=== PATIENT | male | born 1955 | race Caucasian/White ===

== ENCOUNTER → 2016-05-15 | Outpatient (CLI) | payer BC ==
[~2016-05-15] MED LIST: CALC500C3 PO; FLM4 PO; HYDR-5688 PO; LEVO200T6 PO
== END | disposition home or self-care (01) ==
LOC: C.CPL 14:42
PROVIDERS: ATTEND Surgery
DX: Z01.810 Encounter for preprocedural cardiovascular examination (principal); K43.9 Ventral hernia without obstruction or gangrene

== ENCOUNTER → 2016-05-15 | Outpatient (CLI) | payer BC ==
[2016-05-15 15:31] LABS: BASO % 0.6 %; BASO ABS # 0.04 K/uL (0-0.2); COMPLETE YES; EOS % 5.8 %; HEMATOCRIT 47.2 % (42-52); IG% 0.2 %; LYMPH % 32.6 %; LYMPH ABS # 2.12 K/uL (1.2-3.4); MEAN CELL VOLUME 90.6 fL (80-100); MEAN CORPUSCULAR HEMOGLOBIN 32.2 pg (25-34); MEAN CORPUSCULAR HGB CONC 35.6 g/dl (32-36); MEAN PLATELET VOLUME 11.5 fL (7.4-10.4); MONO % 10.2 %; NEUT % 50.6 %; PLATELET COUNT 235 K/uL (130-400); RED BLOOD COUNT 5.21 M/uL (4.7-6.1)
[2016-05-15 15:39] LABS: ALT/SGPT 28 U/L (12-78); BLOOD UREA NITROGEN 13 mg/dl (7-18); BUN/CREATININE RATIO 11.8 (10-20); CALCIUM 9.1 mg/dl (8.5-10.1); CARBON DIOXIDE 28 mmol/L (21-32); CHLORIDE 105 mmol/L (98-107); CHOLESTEROL 215 mg/dl (0-200); GLUCOSE 91 mg/dl (70-99); POTASSIUM 4.1 mmol/L (3.5-5.1); SODIUM 140 mmol/L (136-145)
[2016-05-15 15:45] LABS: PARTIAL THROMBOPLASTIN RATIO 1.1; PROTHROMBIN TIME (PATIENT) 10.3 SECONDS (9.0-12.0)
[2016-05-15 15:49] LABS: ALKALINE PHOSPHATASE 62 U/L (45-117); AST/SGOT 21 U/L (15-37); CHOLESTEROL/HDL RATIO 3.3; HDL CHOLESTEROL 66 mg/dl; LDL CHOLESTEROL CALCULATED 122 mg/dl; PROSTATE SPECIFIC ANTIGEN 0.805 ng/ml (0.000-4.000); TRIGLYCERIDES 133 mg/dl (0-150); VERY LOW DENSITY LIPOPROT CALC 27 mg/dl
== END | disposition home or self-care (01) ==
LOC: C.LAB1850 14:12
PROVIDERS: ATTEND Internal Medicine
DX: Z01.812 Encounter for preprocedural laboratory examination (principal); K43.9 Ventral hernia without obstruction or gangrene; N40.0 Benign prostatic hyperplasia without lower urinary tract symptoms; E03.9 Hypothyroidism, unspecified; R73.9 Hyperglycemia, unspecified; R10.9 Unspecified abdominal pain

== ENCOUNTER → 2016-05-23 | Day surgery (SDC) | payer BC ==
[2016-05-18 11:34] VITALS: Ht 170.2 cm; Wt 81.8 kg
[~2016-05-23] VITALS: Ht 170.2 cm; Wt 81.8 kg
[~2016-05-23] MED LIST changes: +ATROPINE SULFATE 0.1 MG/ML 5ML SYR IV PRN; +BUPIVACAINE/EPINEPHRINE 0.5% MPF 1:200,000 30 ML VIAL ONE; +CEFAZOLIN 2000 MG/60 ML D5W IV SCH; +DEXAMETHASONE SOD INJ 4 MG/ML VIAL ONE; +EpHEDrine SULFATE INJ 50 MG/ML AMP IV PRN; +FENTANYL CITRATE INJ 50 MCG/1 ML 2 ML VIAL ONE; +FLUMAZENIL 0.1 MG/1 ML 10 ML VIAL IV PRN; +HYDROCODONE/ACETAMOPHEN 5/325MG TAB PO PRN; +HYDROmorphone INJ 2 MG/ML SYR/VIAL IV PRN; +IBUPROFEN 600 MG TAB PO PRN; +KETOROLAC TROMETHAMINE 30 MG/ML VIAL IV. PRN; +KETOROLAC TROMETHAMINE 30 MG/ML VIAL ONE; +LABETALOL HCL IV 5 MG/ML 20ML IV PRN; +LACTATED RINGER'S 1000ML 1,000 ML IV SCH; +LIDOCAINE HCL 2% 2 ML VIAL (20MG/ML) ONE; +MEPERIDINE HCL 25 MG/ML CARP IV PRN; +MIDAZOLAM HCL 1 MG/ML 2ML VIAL ONE; +NALOXONE HCL 0.4 MG/1 ML VIAL/CARP IV PRN; +ONDANSETRON INJ 2 MG/ML 2 ML VIAL IV PRN; +ONDANSETRON INJ 2 MG/ML 2 ML VIAL ONE; +PHENYLEPHRINE 100MCG/ML 5ML SYR IV PRN; +PROPOFOL IV EMULSION 10 MG/ML 20 ML VIAL IV ONE; +SODIUM CHLORIDE 0.9% 1000ML 1,000 ML IV SCH
--- NOTE | 2016-05-23 09:07 | History & Physical Bridge Note ---
H&P Re-Evaluation Bridge Note: I have examined the patient, reviewed the History & Physical and in the interval since the performance of the History & Physical I have noted the following changes of clinical significance: No changes noted
--- NOTE | 2016-05-23 09:55 | [facility] Operative Report ---
Operative Report Operative Date May 23, 2016. Pre-Operative Diagnosis Umbilical Hernia Post-Operative Diagnosis umbilical hernia Procedure(s) Performed open umbilical hernia repair without mesh Surgeon Dr. Conway Lotteries Agent Surgeon(s) None Estimated Blood Loss 5 ml Findings small umbilical hernia with fat incarceration Specimens None Anesthesia general with an LMA Complication(s) None Disposition Recovery Room / PACU I attest to the content of the Intraoperative Record and any orders documented therein. Any exceptions are noted below.
[2016-05-23] MEDS: FENTANYL CITRATE INJ 50 MCG/1 ML 2 ML VIAL IV PRN ×3 (09:59→10:28)
--- NOTE | 2016-05-23 10:01 | Discharge Instructions-SurgCtr ---
Discharge Instructions Visit Reason for Visit: Umbilical Hernia Discharge Discharge Diagnosis / Problem: umbilical hernia Discharge Goals Goal(s): Decrease discomfort, Improve function Activity Recommendations Activity Limitations: as noted below Lifting Limitations: no more than 10 pounds Exercise/Sports Limitations: until after follow-up appointment May Resume Sexual Activity: after follow-up appointment Shower/Bathe: tomorrow Anesthesia . Post Anesthesia Instructions: If you have had General Anesthesia or IV Sedation: * Do not drive today. * Resume driving when surgeon permits. * Do not make important decisions or sign legal documents today. * Call surgeon for: 1. Temperature elevations greater than 101 degrees F. 2. Uncontrollable pain. 3. Excessive bleeding. 4. Persistent nausea and vomiting. 5. Medication intolerance (nausea, vomiting or rash). * For nausea and vomiting use only clear liquids such as: tea, soda, bouillon until nausea subsides, then gradually increase diet as tolerated. * If you have any concerns or questions, call your surgeon's office. If physician is unavailable and it is an emergency, call 911 or go to the nearest emergency room. . Diet Recommendations Home Diet: resume previous diet Procedures Procedures Performed: Umbilical Hernia Open Repair Pending Studies Studies pending at discharge: no Medical Emergencies . Who to Call and When: Medical Emergencies: If at any time you feel your situation is an emergency, please call 911 immediately. . Non-Emergent Contact Non-Emergency issues call your: Primary Care Provider, Surgeon Call Non-Emergent contact if: temperature is above 101, your pain is not controlled, wound has increased drainage, wound has increased redness . . "Provider Documentation" section prepared by Alphonse Conway.
[2016-05-23 10:46] VITALS: TEMP 36.5
--- NOTE | 2016-05-23 10:58 | Anesthesia Progress Nt - [facility] ---
Anesthesia Post Op Note Date & Time May 23, 2016 at 10:57 Vital Signs Pain Intensity: 2 Vital Signs Past 12 Hours Date Time Temp Pulse Resp B/P Pulse Ox O2 Delivery O2 Flow Rate FiO2 05/23/16 10:46 36.5 71 16 162/77 96 Room Air 05/23/16 10:40 60 16 05/23/16 10:40 59 16 93 05/23/16 10:40 60 16 05/23/16 10:40 59 16 93 05/23/16 10:38 141/88 05/23/16 10:38 141/88 05/23/16 10:35 63 9 05/23/16 10:35 61 9 95 05/23/16 10:35 61 9 95 05/23/16 10:35 63 9 05/23/16 10:33 143/89 05/23/16 10:33 143/89 05/23/16 10:32 36.5 64 16 143/89 94 Room Air 05/23/16 10:30 67 17 95 05/23/16 10:30 66 17 05/23/16 10:30 67 17 95 05/23/16 10:30 66 17 05/23/16 10:25 66 19 05/23/16 10:25 66 19 05/23/16 10:25 67 19 96 05/23/16 10:25 67 19 96 05/23/16 10:23 134/85 05/23/16 10:23 134/85 05/23/16 10:20 66 13 96 05/23/16 10:20 66 13 05/23/16 10:20 66 13 96 05/23/16 10:20 66 13 05/23/16 10:18 136/85 05/23/16 10:18 136/85 05/23/16 10:15 66 13 05/23/16 10:15 65 13 99 05/23/16 10:15 65 13 99 05/23/16 10:15 66 13 05/23/16 10:13 140/84 05/23/16 10:13 140/84 05/23/16 10:10 67 18 99 05/23/16 10:10 67 18 99 05/23/16 10:10 68 18 05/23/16 10:10 68 18 05/23/16 10:08 121/89 05/23/16 10:08 121/89 05/23/16 10:05 63 13 05/23/16 10:05 63 13 05/23/16 10:05 63 13 96 05/23/16 10:05 63 13 96 05/23/16 10:03 134/80 05/23/16 10:03 134/80 05/23/16 10:00 65 21 95 05/23/16 10:00 66 21 05/23/16 10:00 66 21 05/23/16 10:00 65 21 95 05/23/16 09:59 66 16 95 05/23/16 09:59 67 16 05/23/16 09:58 134/75 05/23/16 09:54 66 14 05/23/16 09:54 66 14 95 05/23/16 09:54 36.2 67 16 127/74 98 Mask 4 05/23/16 08:24 18 125/85 98 Room Air Notes Mental Status: alert / awake / arousable, participated in evaluation Pt Amnestic to Procedure: Yes Nausea / Vomiting: adequately controlled Pain: adequately controlled Airway Patency, RR, SpO2: stable & adequate BP & HR: stable & adequate Hydration State: stable & adequate Anesthetic Complications: no major complications apparent
[2016-05-23 11:14] VITALS: BP 145/87; PULSE 66; O2SAT 95
--- NOTE | 2016-05-23 11:55 | OPERATIVE REPORT ---
DATE OF OPERATION: 05/23/2016 PREOPERATIVE DIAGNOSIS: Umbilical hernia. POSTOPERATIVE DIAGNOSIS: Same. PROCEDURE: Open umbilical hernia repair without mesh. SURGEON: Dr. Conway. ESTIMATED BLOOD LOSS: 10 mL. COMPLICATIONS: No immediate complications. ANESTHESIA: General with laryngeal mask airway. DESCRIPTION OF PROCEDURE: After informed consent was obtained, the patient was taken to the operating suite, placed in supine position. After successful placement of laryngeal mask airway, the periumbilical area was sterilely prepped and draped in the usual fashion. An infraumbilical curvilinear incision was made with a 15 blade scalpel and carried down through the soft tissue using electrocautery. We immediately encountered hernia sac with fat incarceration. We were able to use blunt dissection as well as small amounts of electrocautery to tease it away from the umbilicus as well as the soft tissues. We did open the sac and inspected the contents. It was a simple hernia sac with fat incarceration. We were able to amputate the sac and dump the remainder of the fat back into the abdominal cavity. I did come around the top of the umbilicus with a Luma clamp and we were able to detach the umbilicus to get better fascial edges. I used a 0 Ethibond in an interrupted [id number] fashion and closed what was about a 1 cm defect. Once it was closed, I thoroughly irrigated the wound. I tacked the umbilicus back down to the fascia using 0 Vicryl. Deep layers were closed using 3-0 Vicryl and skin was closed using 4-0 Monocryl. Marcaine was injected around the area for postoperative analgesia. Skin glue and a gauze dressing were applied. The patient was awakened, extubated and transferred to recovery in stable condition. I attest to the content of the Intraoperative Record and any orders documented therein. Any exceptio ns are noted below.
== END | disposition home or self-care (01) ==
LOC: X.SURG 07:42
PROVIDERS: ATTEND Surgery
DX: K42.9 Umbilical hernia without obstruction or gangrene (principal); E03.9 Hypothyroidism, unspecified; G47.33 Obstructive sleep apnea (adult) (pediatric); F17.200 Nicotine dependence, unspecified, uncomplicated; Z90.89 Acquired absence of other organs; Z83.49 Family history of other endocrine, nutritional and metabolic diseases; Z82.61 Family history of arthritis

== ENCOUNTER → 2017-06-01 | Outpatient (CLI) | payer OTHER ==
[~2017-06-01] MED LIST changes: -ATROPINE SULFATE 0.1 MG/ML 5ML SYR IV PRN; -BUPIVACAINE/EPINEPHRINE 0.5% MPF 1:200,000 30 ML VIAL ONE; -CEFAZOLIN 2000 MG/60 ML D5W IV SCH; -DEXAMETHASONE SOD INJ 4 MG/ML VIAL ONE; -EpHEDrine SULFATE INJ 50 MG/ML AMP IV PRN; -FENTANYL CITRATE INJ 50 MCG/1 ML 2 ML VIAL ONE; -FLUMAZENIL 0.1 MG/1 ML 10 ML VIAL IV PRN; -HYDR-5688 PO; -HYDROCODONE/ACETAMOPHEN 5/325MG TAB PO PRN; -HYDROmorphone INJ 2 MG/ML SYR/VIAL IV PRN; -IBUPROFEN 600 MG TAB PO PRN; -KETOROLAC TROMETHAMINE 30 MG/ML VIAL IV. PRN; -KETOROLAC TROMETHAMINE 30 MG/ML VIAL ONE; -LABETALOL HCL IV 5 MG/ML 20ML IV PRN; -LACTATED RINGER'S 1000ML 1,000 ML IV SCH; -LIDOCAINE HCL 2% 2 ML VIAL (20MG/ML) ONE; -MEPERIDINE HCL 25 MG/ML CARP IV PRN; -MIDAZOLAM HCL 1 MG/ML 2ML VIAL ONE; -NALOXONE HCL 0.4 MG/1 ML VIAL/CARP IV PRN; -ONDANSETRON INJ 2 MG/ML 2 ML VIAL IV PRN; -ONDANSETRON INJ 2 MG/ML 2 ML VIAL ONE; -PHENYLEPHRINE 100MCG/ML 5ML SYR IV PRN; -PROPOFOL IV EMULSION 10 MG/ML 20 ML VIAL IV ONE; -SODIUM CHLORIDE 0.9% 1000ML 1,000 ML IV SCH
--- NOTE | 2017-06-01 11:55 | DIAGNOSTIC IMAGING REPORT ---
GALLBLADDER-ABD LIMITED CLINICAL HISTORY: GALLBLADDER POLYP pain. Nausea. TECHNIQUE: Ultrasound COMPARISON STUDY: 12/23/2015 FINDINGS: Several gallbladder polyps measuring up to 5 mm. No shadowing gallstones. Common bile duct 5 mm. Liver pancreas and right kidney are unremarkable. No evidence for right renal hydronephrosis. 1.3 cm mid pole right renal cyst. IMPRESSION: 1. Multiple gallbladder polyps unchanged/or slightly increased in size from the prior study. 2. Normal caliber bile ducts. 3. No shadowing gallstones. 4. Small right renal cyst. The above report was generated using voice recognition software. It may contain grammatical, syntax or spelling errors. Electronically signed by: Tyson Howard M.D. 06/01/2017 11:54 AM Dictated Date/Time: 06/01/2017 11:53 AM
== END | disposition home or self-care (01) ==
LOC: C.ULTRBC 10:49
PROVIDERS: ATTEND Surgery
DX: K82.4 Cholesterolosis of gallbladder (principal); N28.1 Cyst of kidney, acquired